=== PATIENT | male | born 1995 | race Caucasian/White ===

== ENCOUNTER 2022-07-27 12:47 | Outpatient (CLI) | payer SELFPAY ==
--- NOTE | 2022-07-27 11:00 | DI.RAD_ITS ---
Exam(s) XR ANKLE LT COMPLETE EXAM: XR ANKLE LT COMPLETE CLINICAL HISTORY: LT ANKLE PAIN, M25.572, SPRAINED GETTING OFF A LADDER, ? FX TECHNIQUE: 2D digital imaging was performed of the left ankle. Three images were obtained. AP, lat eral and oblique views were obtained. COMPARISON: No exams were available for comparison FINDINGS: BONES: No acute fracture is present. No bony destructive lesion is seen. JOINTS:The ankle mortise is normally aligned. SOFT TISSUE: Normal. IMPRESSION: Unremarkable radiographs of the left ankle. DATA REPOSITORY: RADIATION DOSE DELIVERED:
--- OUTSIDE RECORDS SUMMARY | 2022-07-27 12:54 | XMS_ITS | CCD ---
:1995 Author Care Team Providers Name Role Phone ELYSSA GORMAN Attending Physician Unavailable Vital Signs Unknown or Not Available. Allergies Allergy Code Allergy Type Reaction Status AMOXICILLIN 723 Drug allergy Active Procedures Unknown or Not Available. History of Immunizations Unknown or Not Available. Problems Unknown or Not Available. Results [facility] COVID RHEONIX - Collect Date/Time : 03/11/2021 09:46 Test Name Code Test Result Test Units Test Ref Range SOURCE= Nasopharyngeal N/A Tier- SYMPTOMS N/A SARS COV2 RNA: 35603-5 NEGATIVE N/A REFERENCE RAN GE: NEGAT Active Medications Medication Code Dose Units Frequency Route Modification Start Date/Time predniSONE 20MG [id number] 3 TABLET DAILY ORAL 08/14/19 22 Oral Tablet 05:29 Prescription Detail TAKE 3 TABLET ORAL DAILY PATIENT OR PATIENT'S FAMILY DENIES 0 1 DAILY ORAL 09/02/2018 17:17 Prescription Detail TAKE 1 ORAL DAILY Medications Administered During Visit Unknown or Not Available. Encounters Encounter Diagnosis Diagnosis Code Start Date General symptom [id number] 03/11/2021 Social History Smoking Status Code Start Date End Date Former smoker [id number] 03/02/2019 Patient Decision Aids Unknown or Not Available. Discharge Instructions You were admitted to [facility] on 03/11/2021 11:38 with a principal diagnosis of Other general symptoms and signs You had the following tests done: [facility] COVID RHEONIX You were discharged from [facility] on 03/11/2021 11:38 Should you have any questions prior to d ischarge, please contact a member of your healthcare team. If you have left the ho spital and have any questions, please contact your primary care physician. Chief Complaint and Reason For Visit Unknown or Not Available. Function Status Unknown or Not Available. Plan of Care Unknown or Not Available. Referral/Transition of Care Unknown or Not Available.
== END 2022-07-27 13:07 ==
PROVIDERS: Visit Provider Physician Assistant Medical
DX: M25.572 Pain in left ankle and joints of left foot (principal)
CPT/HCPCS: 73610

== ENCOUNTER 2023-10-30 12:48 | Outpatient (REF) | payer MEDICAID, SELFPAY ==
[2023-10-30 15:20] LABS: Hemoglobin A1C 5.5 % (<5.7)
[2023-10-30 15:32] LABS: ALT 64 U/L (16-63); AST 25 U/L (15-37); Albumin 4.4 g/dL (3.4-5.0); Alkaline Phosphatase 82 U/L (46-116); Anion Gap 10.8 mmol/L (3-11); BUN 16 mg/dL (7-18); Bilirubin, Total 0.4 mg/dL (0.2-1.0); CO2 25.2 mmol/L (21.0-32.0); Calcium 9.4 mg/dL (8.5-10.1); Calculated LDL 140 mg/dL (<100); Chloride 104 mmol/L (98-107); Cholesterol 202 mg/dL (<200); Estimated GFR 103.84 (mL/min/1.73m2); Glucose 97 mg/dL (74-106); HDL Cholesterol 39 mg/dL (40-60); Potassium 4.2 mmol/L (3.5-5.1); Sodium 140 mmol/L (136-145); Total Protein 7.8 g/dL (6.4-8.2); Triglyceride 116 mg/dL (<150)
== END 2023-10-30 12:49 | disposition home or self-care (01) ==
LOC: NCHCN 12:48
PROVIDERS: Visit Provider Registered Nurse
DX: Z00.00 Encounter for general adult medical examination without abnormal findings (principal)
CPT/HCPCS: 80053; 80061; 83036

== ENCOUNTER 2024-11-06 23:53 | Emergency (ER) | payer MEDICAID, SELFPAY ==
--- NOTE | 2024-11-06 23:45 | RT.EKG_ITS ---
APPROVED REPORT Exam: Resting ECG Reason for Exam: Chest pain Patient Location: E HR:63 bpm ECG Measurements Heart Rate 63 AXIS TX 192 P 37 QRSd 106 QRS 75 QT 388 T 19 QTc 398 Conclusion Sinus rhythm...normal P axis, V-rate 60- [address] segment or T wave abnormalities to suggest occlusive DC
[2024-11-06 23:55] VITALS: PULSE 65; RESP 18; TEMP 36.4
[2024-11-06 23:56] VITALS: PULSE 65; O2SAT 96
[2024-11-06 23:57] VITALS: BP 201/104; PULSE 65; O2SAT 98
[2024-11-07] VITALS (30 sets, daily range): BP systolic 122–178; BP diastolic 51–114; PULSE 55–79; RESP 10–25; O2SAT 84–99
[2024-11-07 00:20] LABS: Abs Immature Grans 0.03 10^3/uL (0.0-0.06); Absolute Basophil Count 0.08 10^3/uL (0.0-0.2); Absolute Eosinophil Count 0.16 10^3/uL (0.0-0.7); Absolute Lymphocyte Count 3.04 10^3/uL (1.2-3.4); Absolute Monocyte Count 0.77 10^3/uL (0.1-0.8); Absolute Neutrophil Count 6.47 10^3/uL (1.2-6.7); Basophils % 0.8 %; Eosinophils % 1.5 %; HCT 47.1 % (40.0-50.0); HGB 15.9 g/dL (13.5-17.5); Immature Grans % 0.3 %; Lymphocytes % 28.8 %; MCH 29.7 pg (27.0-33.0); MCHC 33.8 % (32.0-36.0); MCV 88 fL (80-95); MPV 10.7 fL (8.0-11.0); Monocytes % 7.3 %; Neutrophils % 61.3 %; Platelet Count 183 10^3/uL (130-400); RBC 5.36 10^6/uL (4.36-5.78); RDW 12.5 % (11.8-14.1); RDW-SD 40.3 fL; WBC 10.55 10^3/uL (4.4-10.8)
[2024-11-07] MEDS: Normal Saline - Diluent 50 ML VIAL IJ (00:25)
[2024-11-07] MEDS: Omnipaque 350 MG/ML 100 ML BTL IJ (00:25)
--- NOTE | 2024-11-07 00:26 | DI.CT_ITS ---
Exam(s) CT THORAX ABD/PEL CTA EXAM: CT THORAX ABD/PEL CTA CLINICAL HISTORY: Chest pain concern for dissection. TECHNIQUE: Imaging Protocol: Axial computed tomography images with coronal and sagittal reformatted images were created and reviewed CONTRAST MATERIAL: Intravenous: Omnipaque 350 Contrast volume:100 ml Oral: None COMPARISON: No exams were available for comparison FINDINGS: CHEST: AORTA: The diameter of the ascending thoracic aorta is normal and there is no aneurysmal dilatation o f the arch and descending thoracic aorta nor aneurysm of the abdominal aorta nor the iliac arteries. There is no significant atherosclerotic disease in these vessels. No evidence of aortic dissection, penetrating aortic ulcer nor intramural hematoma. No significant stenoses. LUNGS: No infiltrates nor pleural effusions. No ominous pulmonary nodules. No pneumothorax.. MEDIASTINUM: There is no hilar nor mediastinal adenopathy. CARDIAC: Heart size is normal. There is no pericardial effusion. ABDOMEN: Aorta: No evidence of significant stenosis at the origin of the celiac and superior mesenteric arteri es and the inferior mesenteric artery is patent. No significant atherosclerotic disease evident in t he renal arteries. No findings at the aortic bifurcation and iliac arteries. There is no ascites. No ischemic appearing bowel loops. LIVER: There are no focal hepatic lesions nor dilatation of intrahepatic ducts. GALLBLADDER/BILIARY: No obvious gallbladder pathology. CBD is not dilated. PANCREAS: No evidence of pancreatic mass nor dilatation of the pancreatic duct. SPLEEN: Spleen is not enlarged. There are no intrasplenic lesions. Splenic and portal veins are baez nt. ADRENALS: There are no significant adrenal masses. KIDNEYS: No cysts evident. No calculi nor hydronephrosis. No solid renal masses. LYMPH NODES: There is no retroperitoneal nor para-aortic adenopathy. No obvious mesenteric masses. ABDOMINAL WALL: No evidence of significant anterior abdominal wall hernia. GI: There is no evidence of bowel obstruction, free air, nor abscess. PELVIS: LYMPH NODES: There is no intrapelvic nor inguinal adenopathy. GI: No evidence of appendicitis.No evidence of sigmoid diverticulitis. URINARY BLADDER: No calculi nor masses evident REPRODUCTIVE: Prostate size appears normal. Seminal vesicles unremarkable. OSSEOUS: z IMPRESSION: 1. No evidence of aortic dissection nor pericardial effusion. 2. No significant abnormality in the chest, abdomen, and pelvis. RADIATION DOSE DELIVERED: 1,401.3mGy.cm Total DLP DATA REPOSITORY: All CT scans at this facility are submitted to the National Radiology Data Registry (NRDR) Dose Index Registry (DIR) with the [employer] (ACR). RADIATION OPTIMIZATION: All CT scans at this facility use at least one of these dose optimization te chniques: automated exposure control; mA and/or kV adjustment per patient size (includes targeted exa ms where dose is matched to clinical indication); or iterative reconstruction.
[2024-11-07] MEDS: ACETAMINOPHEN 1,000 MG/100 ML BAG 400 MG IVPB (00:30)
[2024-11-07] MEDS: MORPHine 10 MG/ML VIAL 4 MG IVP (00:30)
[2024-11-07 00:31] LABS: INR 1.1 (0.9-1.1); PTT Activated 26.1 sec (20.6-30.2); Prothrombin Time 11.2 sec (9.1-11.1)
[2024-11-07 00:40] LABS: ALT 63 U/L (16-63); AST 18 U/L (15-37); Albumin 4.4 g/dL (3.4-5.0); Alkaline Phosphatase 88 U/L (46-116); BUN 16 mg/dL (7-18); Bilirubin, Total 0.3 mg/dL (0.2-1.0); CREATININE 1.1 mg/dL (0.70-1.30); Calcium 9.6 mg/dL (8.5-10.1); Chloride 104 mmol/L (98-107); Estimated GFR 92.04 (mL/min/1.73m2); Glucose 123 mg/dL (74-106); Lipase 22 U/L (<78); Magnesium 2.1 mg/dL; NT-proBNP 24 pg/mL (<300); Potassium 3.9 mmol/L (3.5-5.1); Sodium 144 mmol/L (136-145); Total Protein 7.6 g/dL (6.4-8.2); Troponin I 7 ng/L (<or=76)
[2024-11-07] MEDS: MORPHine 4 MG/ML SYR (00:40)
[2024-11-07] MEDS: Aspirin 81 MG CHEW 324 MG CH (00:44)
--- NOTE | 2024-11-07 01:03 | ED.GENADUL_ITS ---
Discharge Plan Disposition Patient Disposition: Home Condition: Good Discharge Details Clinical Impression: Chest pain Primary Care Provider: Vianca Heck ED Provider: Elda Ding Home Meds and New Rx's Prescriptions: New sucralfate 1 gram tablet 1 g PO QACHS Qty: 14 0RF Discontinued ziprasidone HCl [Geodon] 60 MG capsule 60 mg PO DAILY Discharge Instructions Instructions: Chest Pain, Adult ED, Acid Reflux, Adult and Adolescent ED Additional Instructions: You can take carafate at bedtime and see if it helps with your symptoms. Do not eat within 3 hours before going to bed. Call your primary care doctor in the morning to schedule an appointment to be seen within the following 72 hours to followup on your visit here. Return to the emergency department for new or worsening symptoms including if your chest pain returns, you have difficultly breathing, feel like you are going to pass out, or if you have any other concerns. Stand Alone Forms: Work Release Discharge Data Discharge Date/Time-TO BE ENTERED AT DEPARTURE: 11/07/24 03:40 HPI General Mode of arrival: ambulatory . Date/Time Provider Initiated Documentation: 11/06/24 23:55 . Limitations to Documentation: no limitations . Information obtained by: patient . HPI Narrative: 29yo previously health male presenting with chest pain that woke him from sleep tonight. [place] normal upon going to bed yesterday evening. Woke with severe sharp substernal chest pain that radiated to his low back. No alleviating or aggravating factors. No numbness, tingling, or weakness in UE. Had similar symptoms once and was evaluated at OSH with no etiology found. Otherwise in his usual state of health with no fevers, chills, nausea, vomiting visual changes, vertigo, headache, or other concerns. Related Data Home Medications ?Medication ?Instructions ?Recorded ?Confirmed sucralfate 1 gram tablet 1 g PO QACHS #14 tabs 11/07/24 Previous Rx's ?Medication ?Instructions ?Recorded sucralfate 1 gram tablet 1 g PO QACHS #14 tabs 11/07/24 Allergies Allergy/AdvReac Type Severity Reaction Status Date / Time amoxicillin AdvReac Severe Anaphylaxsi Unverified 10/10/15 12:59 s General Stated Complaint: Nk/Back Pain QUINTIN: 3 Review of Systems Narrative: see HPI Exam Narrative Exam Narrative: General: Alert, appears to be in some discomfort. Head: Normocephalic, atraumatic Neck: Trachea midline, ?Neck supple. ENT: ?MMM.? No oropharygeal lesions or exudate. Cardiac: ?RRR, no murmurs appreciated. Equal radial pulses. Resp: No respiratory distress. CTAB. Abd: ?Soft, non-distended, nontender. Negative Diggs's. : ?No suprapubic tenderness. Extremities: ?No deformities.? No peripheral edema. Neuro: ? GCS 15.? PERRL.? Motor- 5/5 strength symmetric bilateral upper and lower extremities Sensation- ?Intact to light touch and symmetric multiple dermatomes including upper and lower extremities Gait/station: ?Normal stance.? No truncal ataxia. Steady gait with equal normal steps Course Vital Signs Vital signs: Vital Signs Temperature 36.4 C 11/06/24 23:55 Pulse 65 11/06/24 23:55 Respiratory Rate 18 11/06/24 23:55 Temperature 36.4 C 11/06/24 23:55 Temperature Source Oral 11/06/24 23:55 Pulse 65 11/06/24 23:55 Respiratory Rate 18 11/06/24 23:55 Blood Pressure 161/112 H 11/07/24 00:08 Lab/Test Results Lab/Test Results: Laboratory Tests Range/Units 11/07/24 00:08 WBC (4.4-10.8) 10^3/uL 10.55 RBC (4.36-5.78) 10^6/uL 5.36 Hgb (13.5-17.5) g/dL 15.9 Hct (40.0-50.0) % 47.1 MCV (80-95) fL 88 MCH (27.0-33.0) pg 29.7 MCHC (32.0-36.0) % 33.8 RDW (11.8-14.1) % 12.5 Plt Count (130-400) 10^3/uL 183 MPV (8.0-11.0) fL 10.7 Immature Gran % % 0.3 Neutrophils % % 61.3 Lymphocytes % % 28.8 Monocytes % % 7.3 Eosinophils % % 1.5 Basophils % % 0.8 Nucleated RBC % (0.0-0.3) % 0.0 Absolute Neutrophils (1.2-6.7) 10^3/uL 6.47 Absolute Lymphocytes (1.2-3.4) 10^3/uL 3.04 Absolute Monocytes (0.1-0.8) 10^3/uL 0.77 Absolute Eosinophils (0.0-0.7) 10^3/uL 0.16 Absolute Basophils (0.0-0.2) 10^3/uL 0.08 PT (9.1-11.1) sec 11.2 H INR (0.9-1.1) 1.1 APTT (20.6-30.2) sec 26.1 Sodium (136-145) mmol/L 144 Potassium (3.5-5.1) mmol/L 3.9 Chloride (98-107) mmol/L 104 Carbon Dioxide (21.0-32.0) mmol/L 32.0 Anion Gap (3-11) mmol/L 8.0 BUN (7-18) mg/dL 16 Creatinine (0.70-1.30) mg/dL 1.1 Est GFR (CKD-EPI 2020) (mL/min/1.73m2) 92.04 Glucose (74-106) mg/dL 123 H Calcium (8.5-10.1) mg/dL 9.6 Magnesium mg/dL 2.1 Total Bilirubin (0.2-1.0) mg/dL 0.3 AST (15-37) U/L 18 ALT (16-63) U/L 63 Alkaline Phosphatase (46-116) U/L 88 Troponin I (<or=76) ng/L 7 NT-Pro-B Natriuret Pep (<300) pg/mL 24 Total Protein (6.4-8.2) g/dL 7.6 Albumin (3.4-5.0) g/dL 4.4 Lipase (<78) U/L 22 Medical Decision Making 29yo previously health male presenting with severe chest pain that woke him from sleep tonight; radiates to his back. No history of hypertension per patient and he does report seeing his PCP regularly. On arrival markedly hypertensive 201/104 with vital signs otherwise reassuring with differential BP in bilateral upper extremities (though his BP does seem somewhat labile in the setting of waxing and waning pain). Must consider aortic dissection and so patient taken emergently to CT scanner. Given 325 of aspirin, 1g IV tyelnol, 4mg IV morphine, and GI cocktail. -EKG sinus rhythm, appropriate intervals, no ST segment or T wave abnormalities to suggest occlusive [place]. -CT independently reviewed; no clear aortic dissection or pneumonia or pneumothorax on my view; radiology read below with no acute findings. -Labs reviewed as below, CBC reassuring with no leukocytosis or anemia, CMP with no actionable abnormalities (LFTs reassuring against cholecystitis/choledocolithiasis/surgical gallbladder pathology), Mg normal, lipase not suggestive of pancreatitis, BNP not suggestive of acute heart failure, troponins 7, 6, 7 (HEART score 1 for RF; would not further pursue ACS) On reassessment patient reports pain much improved after medication. Remains pain free three hours after arrival and vital signs now normalized; hypertension on arrival may have been 2/t pain. He reports that he had a large meal prior to bed. With reassuring workup here, favor acid reflux as most likely etiology (gallstones also possible). Regardless he is appropriate for outpatient followup with his PCP . Will prescribe short course of carafate. Discharged h ome; discharge instructions and return precautions were reviewed with patient who verbalized understanding. All questions were answered and he is in full agreement with the plan. Imaging Data Radiologic Study: Imaging: CT Scan Radiologist's impression: IMPRESSION: No significant aortic or vascular pathology. No significant abnormality demonstrated in the chest, abdomen or pelvis. Lab Data Lab results reviewed: Yes I reviewed the patient's lab results. Labs: Laboratory Tests Range/Units 11/07/24 11/07/24 11/07/24 00:08 01:30 03:04 WBC (4.4-10.8) 10^3/uL 10.55 RBC (4.36-5.78) 10^6/uL 5.36 Hgb (13.5-17.5) g/dL 15.9 Hct (40.0-50.0) % 47.1 MCV (80-95) fL 88 MCH (27.0-33.0) pg 29.7 MCHC (32.0-36.0) % 33.8 RDW (11.8-14.1) % 12.5 Plt Count (130-400) 10^3/uL 183 MPV (8.0-11.0) fL 10.7 Immature Gran % % 0.3 Neutrophils % % 61.3 Lymphocytes % % 28.8 Monocytes % % 7.3 Eosinophils % % 1.5 Basophils % % 0.8 Nucleated RBC % (0.0-0.3) % 0.0 Absolute Neutrophils (1.2-6.7) 10^3/uL 6.47 Absolute Lymphocytes (1.2-3.4) 10^3/uL 3.04 Absolute Monocytes (0.1-0.8) 10^3/uL 0.77 Absolute Eosinophils (0.0-0.7) 10^3/uL 0.16 Absolute Basophils (0.0-0.2) 10^3/uL 0.08 PT (9.1-11.1) sec 11.2 H INR (0.9-1.1) 1.1 APTT (20.6-30.2) sec 26.1 Sodium (136-145) mmol/L 144 Potassium (3.5-5.1) mmol/L 3.9 Chloride (98-107) mmol/L 104 Carbon Dioxide (21.0-32.0) mmol/L 32.0 Anion Gap (3-11) mmol/L 8.0 BUN (7-18) mg/dL 16 Creatinine (0.70-1.30) mg/dL 1.1 Est GFR (CKD-EPI 2020) (mL/min/1.73m2) 92.04 Glucose (74-106) mg/dL 123 H Calcium (8.5-10.1) mg/dL 9.6 Magnesium mg/dL 2.1 Total Bilirubin (0.2-1.0) mg/dL 0.3 AST (15-37) U/L 18 ALT (16-63) U/L 63 Alkaline Phosphatase (46-116) U/L 88 Troponin I (<or=76) ng/L 7 6 7 NT-Pro-B Natriuret Pep (<300) pg/mL 24 Total Protein (6.4-8.2) g/dL 7.6 Albumin (3.4-5.0) g/dL 4.4 Lipase (<78) U/L 22 Quality:[facility] Health Related Social Needs: No Data to Display PFSH All Active Problems (Updated 11/07/24 @ 03:32 by Elda Ding MD) Chest pain (Acute) Social History Smoking/Tobacco Use Status: Current every day Smoking risk assessment performed?: Yes Alcohol Intake: current Alcohol Intake frequency: holidays/special occasions only Drug use: Occasionally Substance use type: does not use
--- NOTE | 2024-11-07 01:39 | DI.VRAD_ITS ---
PROCEDURE INFORMATION: Exam: CTA Chest With Contrast CTA Abdomen and Pelvis With Contrast Exam date and time: 11/07/2024 12:13 AM Age: 29 years old Clinical indication: Chest pressure; Chest pain concern for dissection TECHNIQUE: Imaging protocol: Computed tomographic angiography of the chest with contrast. Exam focused on the arteries. Computed tomographic angiography of the abdomen and pelvis with contrast. Exam focused on the arteries. 3D rendering (Not supervised by radiologist): MIP and/or 3D reconstructed images were created by the technologist. Radiation optimization: All CT scans at this facility use at least one of these dose optimization techniques: automated exposure control; mA and/or kV adjustment per patient size (includes targeted exams where dose is matched to clinical indication); or iterative reconstruction. Contrast material: [id number]; Contrast volume: 100 ml; Contrast route: INTRAVENOUS (IV); COMPARISON: No relevant prior studies available. FINDINGS: VASCULATURE: Pulmonary arteries: Normal. No pulmonary emboli. Aorta: No aortic aneurysm. No aortic dissection. Celiac trunk and mesenteric arteries: No occlusion or significant stenosis. Renal arteries: No occlusion or significant stenosis. Right iliac arteries: No occlusion or significant stenosis. Left iliac arteries: No occlusion or significant stenosis. CHEST: Lungs: Unremarkable. No consolidation. No masses. Pleural spaces: Unremarkable. No pneumothorax. No pleural effusion. Heart: Unremarkable. No cardiomegaly. No pericardial effusion. ABDOMEN AND PELVIS: Liver: No mass. Gallbladder and biliary ducts: Unremarkable. No calcified stones. No ductal dilation. Pancreas: Unremarkable. No mass. No ductal dilation. Spleen: Unremarkable. No splenomegaly. Adrenal glands: Unremarkable. No mass. Kidneys and ureters: Unremarkable. No solid mass. No hydronephrosis. Stomach and bowel: Unremarkable. No obstruction. No mucosal thickening. Appendix: No evidence of appendicitis. Intraperitoneal space: Unremarkable. No free air. No significant fluid collection. Urinary bladder: Unremarkable. No mass. Reproductive: Unremarkable as visualized. Lymph nodes: Unremarkable. No enlarged lymph nodes. Bones/joints: Unremarkable. No acute fracture. Soft tissues: Unremarkable. IMPRESSION: No significant aortic or vascular pathology. No significant abnormality demonstrated in the chest, abdomen or pelvis. Dictated and Authenticated by: Markell Saleh MD. Orderin Toña Schroeder MD
[2024-11-07 01:53] LABS: Troponin I 6 ng/L (<or=76)
[2024-11-07 03:28] LABS: Troponin I 7 ng/L (<or=76)
== END 2024-11-07 03:40 | disposition home or self-care (01) ==
LOC: ER 11-07 03:48
PROVIDERS: Emergency Provider Student in an Organized Health Care Education/Training Program; PCP Family Medicine
DX: R07.9 Chest pain, unspecified (principal); F17.200 Nicotine dependence, unspecified, uncomplicated
CPT/HCPCS: 71275; 80053; 83690; 93005; 96365; 96375; 99285; 74174; 83735; 83880; 84484; 85025; 85610; 85730; 93010; J0131; J2270; J3490

== ENCOUNTER 2024-11-11 22:05 | Emergency (ER) | payer MEDICAID, SELFPAY ==
--- NOTE | 2024-11-11 22:08 | W.ED.GENAD ---
Discharge Plan Disposition Patient Disposition: Home Condition: Good Discharge Details Clinical Impression: Recurrent upper abdominal pain, Adverse drug reaction Primary Care Provider: Vianca Heck ED Provider: Jero Castañeda Meds and New Rx's Prescriptions: No Action sucralfate 1 gram tablet 1 g PO QACHS Qty: 14 0RF Discharge Instructions Instructions: Abdominal Pain, Adult ED Additional Instructions: You were seen in the ED for recurrent upper abdominal pain. At this time your exam and laboratory studies remain reassuring. As we discussed, the two things that I would suggest you continue to pursue as outpatient would be referral to GI and probable upper endoscopy. Could also consider having a HIDA scan to completely rule out possibility of gallbladder disease. Since you are seeing your primary care in the morning I will hold off on any prescriptions at this time. Do consider raising the head of your bed as my suspicion is this is acid related disease. Avoid eating 3 hours prior to going to bed. Return to ED for any new or worsening pain, persistent vomiting, vomiting of blood or coffee-ground, chest pain, shortness of breath, fever, other concerns. Referrals: Vianca Heck [Primary Care Provider] - [facility] General Mode of arrival: ambulatory. Date/Time Provider Initiated Documentation: 11/11/24 22:08. Limitations to Documentation: no limitations. Information obtained by: patient, RN notes reviewed and old records reviewed. HPI Narrative: Patient presents to ED with recurrent right upper quadrant/right lower chest pain that radiates into the right mid back. Patient reports onset around 8 PM tonight. Patient had similar presentation in the overnight from November 06 to the . He was seen here. He has follow-up appointment with primary care tomorrow. He was discharged on sucralfate. He had pizza this afternoon. Developed pain this evening. He has taken the sucralfate and did take rull-lph-swycrpp omeprazole. [place] a little dizzy but no chest pain or shortness of breath, syncope. He has no nausea or vomiting. He has no fever. He has no urinary symptoms. He does report that the pain is worse if he is lying flat as opposed to sitting up. At discharge last week he was told could be related to GERD/acid or gallstone/gallbladder. He came in this evening despite having an appointment tomorrow because he did not want to pain to become as bad as it did last week. Related Data Home Medications ?Medication ?Instructions ?Recorded ?Confirmed sucralfate 1 gram tablet 1 g PO QACHS #14 tabs 11/07/24 11/11/24 Previous Rx's ?Medication ?Instructions ?Recorded sucralfate 1 gram tablet 1 g PO QACHS #14 tabs 11/07/24 Allergies Allergy/AdvReac Type Severity Reaction Status Date / Time amoxicillin AdvReac Severe Anaphylaxsi Unverified 11/11/24 22:16 s metoclopramide AdvReac Intermediate Other (See Verified 11/11/24 23:22 Comment) General QUINTIN: 3 Exam Narrative Exam Narrative: Const: WDWN male in NAD. VS per triage. HEENT: NC/AT. Normal facial exam. Neck: Supple. Trachea midline. Lungs: Normal respiratory effort. Lungs are clear. Cor: RRR without murmur. Good radial pulses. GI: Soft/ND. Mild RUQ tenderness, no guarding/rebound. No Diggs's Neuro: A+O x 3. Normal speech, mentation, gait. Cranial nerves II - XII grossly intact. No gross motor or sensory deficit. Medical Decision Making Patient presented to ED with recurrent right upper quadrant/right lower chest pain that radiates through to the right mid back. Previously seen here with full workup including CTA of the chest abdomen pelvis. EKG, troponins, labs, CT were all reassuring. He reports that the GI cocktail seemed to make everything much better as opposed to anything else he was given. He is also reporting having an ultrasound at [facility] few months ago which was normal. Given his previous workup that included EKG, troponins, CT scan I am not concerned that this is cardiac in nature. He does not describe any pleuritic symptoms and he is not short of breath. He is extremely low risk for PE and subsequently PERCs out. At this point would agree with previous differential that includes acid related disease, gallbladder disease, pancreatitis. Will plan to place IV and give GI cocktail, IV metoclopramide and famotidine and recheck laboratory studies. Patient reports no real change in his symptoms after GI cocktail. He developed anxiety and akathisia after the metoclopramide. He did not get the full dose of famotidine as he wanted his IV out. I have discussed with him the adverse reaction with metoclopramide. He is given oral diphenhydramine. Laboratory studies are unremarkable. Given normal gallbladder ultrasound, CT scan, laboratory studies over the last few months I am leaning toward this being more acid related disease. He has a follow-up appointment with primary care in the morning. Recommend discussion with referral to GI for endoscopy. Could consider HIDA scan to completely rule out gallbladder disease. He is given oral famotidine and pantoprazole tonight as well as sublingual Levsin in case some of his pain is related to esophageal spasm. Return precautions provided. Medical Records Medical records reviewed: Yes I reviewed the patient's medical records. Medical records narrative: last week ED visit and studies Lab Data Lab results reviewed: Yes I reviewed the patient's lab results. Lab results narrative: see [facility] All Active Problems (Updated 11/12/24 @ 00:00 by Jero Castañeda MD) Adverse drug reaction (Acute) Recurrent upper abdominal pain (Acute) Chest pain (Acute) Medical History (Updated 11/12/24 @ 00:00 by Jero Castañeda MD) No significant past medical history Surgical History (Updated 11/11/24 @ 22:31 by Jero Castañeda MD) No significant past surgical history Social History Smoking/Tobacco Use Status: Current every day Smoking risk assessment performed?: Yes Alcohol Intake: current Alcohol Intake frequency: holidays/special occasions only Drug use: Occasionally Substance use type: does not use
[2024-11-11 22:09] VITALS: BP 135/103; PULSE 74; RESP 18; TEMP 36.8; O2SAT 98
[2024-11-11] MEDS: Lidocaine 2% Viscous 15 ML CUP PO (22:51)
[2024-11-11] MEDS: Mylanta Suspension 30 ML CUP 20 ML PO (22:51)
[2024-11-11] MEDS: Metoclopramide 10 MG/2 ML VIAL IVP (22:53)
[2024-11-11] MEDS: FAMOTIDINE 20 MG in Normal Saline 100 ML 400 MG IVPB (22:54)
[2024-11-11 23:08] LABS: Abs Immature Grans 0.03 10^3/uL (0.0-0.06); Absolute Basophil Count 0.08 10^3/uL (0.0-0.2); Absolute Eosinophil Count 0.17 10^3/uL (0.0-0.7); Absolute Lymphocyte Count 2.31 10^3/uL (1.2-3.4); Absolute Monocyte Count 0.76 10^3/uL (0.1-0.8); Absolute Neutrophil Count 6.21 10^3/uL (1.2-6.7); Basophils % 0.8 %; Eosinophils % 1.8 %; HCT 44.6 % (40.0-50.0); HGB 15.4 g/dL (13.5-17.5); Immature Grans % 0.3 %; Lymphocytes % 24.2 %; MCH 29.9 pg (27.0-33.0); MCHC 34.5 % (32.0-36.0); MCV 87 fL (80-95); MPV 10.3 fL (8.0-11.0); Monocytes % 7.9 %; Platelet Count 220 10^3/uL (130-400); RBC 5.15 10^6/uL (4.36-5.78); RDW 12.4 % (11.8-14.1); RDW-SD 38.9 fL; WBC 9.56 10^3/uL (4.4-10.8)
[2024-11-11 23:23] LABS: Bilirubin Negative (Negative); Blood Negative (Negative); Clarity Clear (Clear); Glucose Negative (Negative); Ketones Negative (Negative); Leukocyte Esterase Negative (Negative); Nitrite Negative (Negative); Specific Gravity 1.025 (1.005-1.025); Urobilinogen 0.2 mg/dL (Up to 0.2); pH 5.5 (5-8)
[2024-11-11 23:23] LABS: ALT 61 U/L (16-63); AST 23 U/L (15-37); Albumin 4.3 g/dL (3.4-5.0); Alkaline Phosphatase 72 U/L (46-116); Anion Gap 9.5 mmol/L (3-11); BUN 23 mg/dL (7-18); Bilirubin, Total 0.5 mg/dL (0.2-1.0); CO2 28.5 mmol/L (21.0-32.0); CREATININE 1.1 mg/dL (0.70-1.30); Calcium 9.4 mg/dL (8.5-10.1); Chloride 104 mmol/L (98-107); Estimated GFR 92.04 (mL/min/1.73m2); Glucose 95 mg/dL (74-106); Lipase 17 U/L (<78); Potassium 3.8 mmol/L (3.5-5.1); Sodium 142 mmol/L (136-145); Total Protein 7.3 g/dL (6.4-8.2)
[2024-11-11] MEDS: diphenhydrAMINE 25 MG CAP 50 MG PO (23:23)
[2024-11-11] MEDS: Hyoscyamine 0.125 MG SL/ORAL/CHEW SL (23:53)
[2024-11-11] MEDS: Famotidine 20 MG TAB PO (23:53)
[2024-11-11] MEDS: Pantoprazole 40 MG TABCR PO (23:53)
[2024-11-12 00:13] VITALS: BP 140/107; PULSE 65; RESP 18; O2SAT 97
== END 2024-11-12 00:16 | disposition home or self-care (01) ==
PROVIDERS: Emergency Provider Emergency Medicine; PCP Family Medicine
DX: R10.11 Right upper quadrant pain (principal); T50.995A Adverse effect of other drugs, medicaments and biological substances, initial encounter
CPT/HCPCS: 80053; 83690; 96365; 96375; 99284; 81003; 85025; J2765; J3490

== ENCOUNTER 2024-11-22 00:11 | Outpatient (CLI) | payer MEDICAID, SELFPAY ==
--- NOTE | 2024-11-22 | DI.RAD_ITS ---
Exam(s) XR LUMBAR SPINE COMPLETE EXAM: XR LUMBAR SPINE COMPLETE CLINICAL HISTORY: LUMBAR SPONDYLOLISTHESIS, M43.16. TECHNIQUE: 2D digital imaging was performed. Five views. COMPARISON: No exams were available for comparison FINDINGS: BONES: No fracture or destructive lesion. Vertebral body heights are maintained. Tiny osteophyte a t the superior endplate of L4. No facet hypertrophy identified . No evidence of spondylolysis. DISKS: Intervertebral disc spaces are maintained. ALIGNMENT: Lumbar spinal alignment is within normal limits. No spondylolisthesis. SOFT TISSUE: Normal. IMPRESSION: Unremarkable radiographs of the lumbar spine. DATA REPOSITORY: RADIATION DOSE DELIVERED:
== END 2024-11-22 00:31 ==
LOC: DI 00:11
PROVIDERS: PCP Family Medicine; Visit Provider Family Medicine
DX: M43.16 Spondylolisthesis, lumbar region (principal)
CPT/HCPCS: 72110